=== PATIENT | male | born 1960 | race African-American/Black ===

== ENCOUNTER 2019-02-01 13:28 | Emergency (ER) | payer SELFPAY ==
[~2019-02-01] VITALS: Ht 182.9 cm; Wt 93.0 kg
[~2019-02-01 13:28] MED LIST: ROBAXIN500 MG PO; VICODIN 5-3001 EACH ORAL; VICODIN ES 7.51 EAC1 ORAL
[2019-02-01] MEDS ORDERED: AMLODIPINE BESY10 MG ORAL ×2 (13:38→13:50)
[2019-02-01] MEDS ORDERED: LISINOPRIL-HCT1 EAC2 ORAL ×2 (13:38→13:50)
--- NOTE | 2019-02-01 13:41 | NUR ---
ED Nurse Note: Pt. came for amlodipine and lisinopril refills, ran out for 5 days. BP 162/101. AOx4, other VSS. Will cont to monitor.
--- NOTE | 2019-02-01 13:49 | Emergency Room Report ---
History of Present Illness General Chief Complaint: Medication Refill Source: Patient Present Illness HPI 58-year-old male with history of hypertension currently controlled with hydrochlorothiazide lisinopril and amlodipine here requesting a medication refill for his blood pressure medication. Recently moved to [place] from [place] and has not established a primary care physician patient has not taken his blood pressure medication for the past 5 days, the pressure is elevated however he denies chest pain, shortness of breath, headache, dizziness and blurry vision. Denies abdominal pain, nausea vomiting, and is requesting a 90- day supply of his blood pressure medication. Denies all other past medical history and reports that he has been on the 2 above medication for over a year. Allergies: Coded Allergies: NO KNOWN DRUG ALLERGIES (Unverified Allergy, Unknown, 12/13/14) Patient History Past Medical History: see triage record Past Surgical History: unable to obtain Pertinent Family History: none Immunizations: UTD Reviewed Nursing Documentation: PMH: Agreed; PSxH: Agreed Nursing Documentation-PMH Past Medical History: No History, Except For Hx Hypertension: Yes Review of Systems All Other Systems: negative except mentioned in HPI Physical Exam Vital Signs Date Time Temp Pulse Resp B/P (MAP) Pulse Ox O2 Delivery O2 Flow Rate FiO2 02/01/19 13:33 98.2 72 18 162/101 (121) 98 Room Air Sp02 EP Interpretation: reviewed, normal General Appearance: normal inspection, well appearing, no apparent distress, alert Head: normocephalic, atraumatic Eyes: bilateral eye normal inspection, bilateral eye PERRL ENT: normal ENT inspection, hearing grossly normal, normal pharynx, no angioedema Neck: normal inspection, full range of motion, supple, thyroid normal Respiratory: normal inspection, lungs clear, no rhonchi, no wheezing Cardiovascular #1: normal inspection, regular rate, rhythm, no murmur, normal capillary refill Gastrointestinal: normal inspection, soft Genitourinary: no CVA tenderness Musculoskeletal: normal inspection, back normal Neurologic: normal inspection, alert, oriented x3 Psychiatric: normal inspection, judgement/insight normal Skin: normal inspection, normal color Lymphatic: normal inspection, no adenopathy Medical Decision Making PA Attestation All my diagnosis and treatment plans were reviewed ad discussed with my supervising physician Dr. Wiseman Diagnostic Impression: Primary Impression: Encounter for medication refill Additional Impression: HTN (hypertension) ER Course 58-year-old male with history of hypertension currently controlled with hydrochlorothiazide lisinopril and amlodipine here requesting a medication refill for his blood pressure medication. Recently moved to [place] from [place] and has not established a primary care physician patient has not taken his blood pressure medication for the past 5 days, the pressure is elevated however he denies chest pain, shortness of breath, headache, dizziness and blurry vision. Denies abdominal pain, nausea vomiting, and is requesting a 90- day supply of his blood pressure medication. Denies all other past medical history and reports that he has been on the 2 above medication for over a year. Ddx considered but are not limited to: GA, Angina, COPD, GERD, HTN controlled, Vital signs: are WNL, pt. is afebrile H&PE are most consistent with HTN controlled ORDERS: Amlodipine 10 mg, lisinopril hydrochlorothiazide 20/25 mg ED INTERVENTIONS: Amlodipine 10 mg DISCHARGE: At this time pt. is stable for d/c to home. Will provide printed patient care instructions, and any necessary prescriptions. Care plan and follow up instructions have been discussed with the patient prior to discharge. I gave patient a list of family clinics that he can walk-in to establish a family care provider also advised him to call his insurance and have established PCP as it is not advised to get 90-day supplies of his blood pressure as blood pressure is a chronic issue and needs to be evaluated by a primary care provider patient understands and agrees Last Vital Signs Date Time Temp Pulse Resp B/P (MAP) Pulse Ox O2 Delivery O2 Flow Rate FiO2 02/01/19 13:33 98.2 72 18 162/101 (121) 98 Room Air Disposition: HOME, SELF-CARE Condition: Stable Scripts Lisinopril/Hydrochlorothiazide 20-25 Mg Tab (LISINOPRIL-HCTZ 20-25 MG TAB) 1 Each Tablet 1 TAB ORAL DAILY for 30 Days, #30 TAB Prov: Marilin Winston 02/01/19 Amlodipine Besylate* (AMLODIPINE BESYLATE*) 10 Mg Tablet 10 MG ORAL DAILY for 30 Days, #30 TAB Prov: Marilin Winston 02/01/19 Patient Instructions: Hypertension, [id number], Medicine Refill at the Emergency Department Marilin Winston Feb 01, 2019 13:49
[2019-02-01 13:56] VITALS: BP 158/97
[2019-02-01 13:57] VITALS: BP 158/97
--- NOTE | 2019-02-01 13:57 | NUR ---
ER DISCHARGE NOTE: Patient is cleared to be discharged per ERMD, pt is aox4, on room air, with stable vital signs. pt was given dc and prescription instructions, pt was able to verbalize understanding, pt id band removed. pt is able to ambulate with steady gait. pt took all belongings.
== END 2019-02-01 13:57 | disposition home or self-care (01) ==
LOC: EMR 13:48
DX: I10 Essential (primary) hypertension (principal); Z76.0 Encounter for issue of repeat prescription
CPT/HCPCS: 99282